=== PATIENT | male | born 1940 ===

== ENCOUNTER 2019-02-26 14:27 | Inpatient (IN) | payer MEDICARE, OTHER ==
[2019-02-26] MEDS ORDERED: Acetaminophen 500 MG TAB PO PRN (17:27)
[2019-02-26] MEDS ORDERED: Doxazosin 2 MG TAB PO SCH (21:00)
[2019-02-26] MEDS: Acetaminophen 500 MG TAB PO PRN (22:40)
[2019-02-27 05:20] LABS: #Eosinphils 0.2 thou/uL (0.0-0.7); #Monocytes 0.8 thou/uL (0.11-0.59); #Neutrophils 5.1 thou/uL (1.40-6.50); %Basophils 0.5 % (0.0-1.0); %Lymphocytes 13.5 % (21.0-51.0); %Monocytes 10.8 % (0.0-10.0); %Neutrophils 72.3 % (42.0-75.0); Hemoglobin 10.9 g/dL (14.0-18.0); Mean Corpuscular HGB CONC 33.6 g/dL (32.0-36.0); Mean Corpuscular Hemoglobin 31.1 pg (27.0-31.0); Mean Corpuscular Volume 92.7 fL (78.0-98.0); Platelet Count 137 thou/uL (130-400); RBC Distribution Width 12.3 % (11.5-14.5); Red Blood Cell (RBC) Count 3.51 mill/uL (4.70-6.10); White Blood Cell (WBC) Count 7.1 thou/uL (4.8-10.8)
[2019-02-27 05:41] LABS: ALT (SGPT) 16 U/L (8-55); AST (SGOT) 22 U/L (5-34); Albumin 3.4 g/dL (3.4-4.8); Alkaline Phosphatase 32 U/L (40-110); Anion Gap 12 mmol/L (10-20); BUN (Urea Nitrogen) 17 mg/dL (8.4-25.7); Bilirubin, Total 0.7 mg/dL (0.2-1.2); Calc. Creatinine Clearance 101 mL/min (70-130); Calcium 8.8 mg/dL (7.8-10.44); Carbon Dioxide 25 mmol/L (23-31); Cardiac Risk 3.4 (Less than 4.5); Chloride 106 mmol/L (98-107); Cholesterol 124 mg/dl (< 200 Desired); Estimated GFR-MDRD 68; Globulin 2.5 g/dL (2.4-3.5); Glucose 161 mg/dL (83-110); HDL Cholesterol 37 mg/dL (>60 Neg Risk); LDL Cholesterol, Calculated 66 mg/dL; Potassium 4.1 mmol/L (3.5-5.1); Protein, Total 5.9 g/dL (5.8-8.1); Sodium 139 mmol/L (136-145); Triglycerides 105 mg/dL (Less than 150)
[2019-02-27] MEDS ORDERED: Doxazosin Mesylate 1 MG TAB PO SCH (09:00)
[2019-02-27] MEDS: Isosorbide Mononitrate 20 MG TAB PO SCH (09:13)
[2019-02-27] MEDS: Bisoprolol Fumarate 5 MG TAB PO SCH (09:13)
[2019-02-27] MEDS: Fenofibrate Nanocrystallized 145 MG TAB PO SCH (09:13)
[2019-02-27] MEDS: Rivaroxaban 10 MG TAB PO SCH (09:13)
[2019-02-27] MEDS: Acetaminophen 500 MG TAB PO PRN (09:18)
[2019-02-27] MEDS ORDERED: Doxazosin 2 MG TAB PO SCH (10:30)
[2019-02-27 12:01] LABS: Bilirubin Negative (Negative); Blood, Urine Small (Negative); Clarity Clear (Clear); Glucose, Urine (Dipstick) Negative (Negative); Leukocyte Negative (Negative); Nitrite Negative (Negative); Protein, Urine (Dipstick) 30 mg/dL (Neg-Trace); Urobilinogen 0.2 mg/dL (Less than 2)
[2019-02-27 12:24] LABS: Bacteria/HPF Rare-Few HPF (None Seen); Squamous Epithelial 0-3 HPF (0-3); WBC/HPF 0-3 HPF (0-3)
--- NOTE | 2019-02-27 14:56 | HP ---
Admitted to [facility] on 02/26/2019. CHIEF COMPLAINT: Weakness and gait abnormality following right hip replacement. HISTORY OF PRESENT ILLNESS: The patient is a 78-year-old white male, who has a history of hypertension and osteoarthritis. He has had a left total hip replacement 14 years ago due to severe osteoarthritis. He has developed severe arthritis of the right hip and this has gradually progressed to where he was having increasing pain with ambulation. Efforts to control this have been failing. The patient was admitted to [facility] under the care of orthopedic surgeon, Dr. North Kern, and on 02/24/2019, he underwent a right total hip arthroplasty for end-stage osteoarthritis of the hip. The patient had no complications. This was done under spinal anesthesia, nerve block, and sedation. Postop has been unremarkable. He said he has been managing this pain with Tylenol alone. He has been able to get up and he has been walking short distance. He said other than the incisional pain, he is doing fine. He is not having the pain in his hip like he had prior to the surgery. Overall, he is feeling good. He was transferred to [facility] on 02/26/2019 for purpose of physical therapy and occupational therapy to help with his strength, generalize weakness, deconditioning, and gait abnormality following the surgery. The patient was seen soon after his admission and his son was in attendance. The patient was able to give excellent history of what had recently happened and how he is doing now. He said he has been managing fine on Tylenol alone. PAST MEDICAL HISTORY: The patient had a left total hip replacement in 2004 for severe osteoarthritis; right total hip arthroplasty on 02/24/[address] [facility] by orthopedic surgeon, North Kern; laparoscopic cholecystectomy by Dr. Mihai Acosta; umbilical hernia repair. The patient has hypertension, hyperlipidemia, BPH, for which he has undergone a UroLift. He has spondylosis of his cervical and lumbar spine. He has a generalized osteoarthritis particularly of the hips and also some of the knees. PRESENT MEDICATIONS: 1. Acetaminophen 500 mg one or two every 6 hours as needed. 2. Bisoprolol fumarate 5 mg daily. 3. Xarelto 10 mg daily for DVT prophylaxis post hip replacement. 4. Isosorbide mononitrate 20 mg daily. 5. Fenofibrate 160 mg at bedtime. 6. Doxazosin 4 mg at bedtime. ALLERGIES: LEVAQUIN AND PENICILLIN. REVIEW OF SYSTEMS: CONSTITUTIONAL: The patient has not had any chills or fever. He has had no recent weight gain or loss. HEAD AND NECK: No complaints. PULMONARY: No shortness of breath or chest pain. CARDIOVASCULAR: No chest pain. GI: The patient has had no nausea or vomiting. The patient said he has felt a little mildly distended. He has had just a little bit of loose stools. He said this started a little bit before the surgery. He thinks it may have just been from nervousness with the upcoming surgery. : No complaints. MUSCULOSKELETAL: The patient says he has some pain and stiffness around the knees when he first extends the knees. When he is up moving around, they feel a lot better and he is able to walk well. NEUROPSYCHIATRIC: The patient says occasionally he has a little trouble with urination and a little problem controlling his stools ADLs: The patient is independent of all his ADLs and instrumental ADLs. HABITS: Alcohol, none. Tobacco, none. SOCIAL HISTORY: The patient is , lives with his . PHYSICAL EXAMINATION: GENERAL: Very pleasant 78-year-old white male, who is lying in bed. He is talkative, appears very comfortable, and in no distress. VITAL SIGNS: Temperature of 97.9, pulse of 98, respirations are 18, O2 saturation 97% on room air, blood pressure 129/57, and weight 266. HEENT: Head, normocephalic. Eyes, pupils are equal, round, and reactive. Ears , TMs are clear. Nose normal. Mouth and throat normal. NECK: Carotids are equal and strong. No bruits. Thyroid not enlarged. LUNGS: Clear. HEART: Regular rate. No murmurs. ABDOMEN: Soft with no organomegaly. No areas of tenderness. Abdomen is obese. He has had umbilical hernia repair with mesh. EXTREMITIES: There is no lower extremity edema. Incision over the right hip has some mild surrounding bruising. The incision has been closed with rikki and appears to be healing well. NEUROLOGIC: The patient is alert, oriented x3, and also understands situation. He was able to give a good history. He has generalized weakness. He has some increased weakness in the right leg from the recent surgery. Otherwise, no focal weakness. IMPRESSION: 1. Generalized weakness and deconditioning with gait abnormality. a. Following right total hip replacement on 02/24/2019. 2. Hospitalized at [facility] from 02/24 until 02/26/2019 for right total hip replacement. 3. Severe osteoarthritis of the hips. a. Status post right total hip arthroplasty on 02/24/[address] North Kern. b. Status post left total hip replacement for severe osteoarthritis in 2004. 4. Hypertension. 5. Hyperlipidemia. 6. Benign prostatic hyperplasia. a. Status post urethral lift. 7. Hyperlipidemia. 8. Obesity. PLAN: The patient is admitted to [facility] for purpose of physical therapy and occupational therapy. This patient has been placed on DVT prophylaxis by surgeon, Dr. Kern, with Xarelto, which will be continued. We will continue his routine medication, and the goals will be to try to get the patient back up ambulating independently and transferring independently and return home with his . CODE STATUS: Full code. Job ID: [id number] MTDD
--- NOTE | 2019-02-27 14:56 | PRG ---
DATE OF SERVICE: 02/27/2019 SUBJECTIVE: The patient said he had a pretty good night. He had a little burning sensation in the right hip, but with repositioning and Tylenol this relieved this. During the night, he woke up with kind of a sweating spell, but no fever. The patient said he had a Kelly catheter after his hip surgery that was removed on the day of his discharge. He said that he has been voiding, but he is not voiding the volume he was as when he had the catheter and wondered if he might not be completely emptying his bladder. Also, he said that when the catheter was removed, the process removing caused a little burning. He has had no subsequent burning. He has in the past had urinary tract infections. Otherwise, he thinks he is doing good. OBJECTIVE: GENERAL: The patient is sitting up on the side of the bed, alert, talkative, appears in no distress. VITAL SIGNS: Show temperature 98.1, pulse 92, respirations 18, O2 saturation 97 % on room air, blood pressure 152/72. LUNGS: Clear. HEART: Regular rate. EXTREMITIES: No edema. SKIN: Dressing is dry. LABORATORY DATA: His lab shows H and H of 10.9 and 32.5, white cell count 7100 with 72% neutrophils, 14% lymphocytes, 11% monocytes, and platelet count of 137,000. Sodium 139, potassium 4.1, BUN 17, creatinine 1.05, GFR 68, glucose 161. TSH 0.84. Cholesterol 124, triglycerides 105, LDL 66. HDL 37. ASSESSMENT: 1. Generalized weakness and deconditioning. a. Following right total hip replacement on 02/24/2019. b. Improved working with Physical Therapy. 2. Status post hospitalization at [facility] from 02/24 to for severe arthritis of the right hip requiring right total hip replacement. 3. Severe generalized osteoarthritis. a. Status post right total hip arthroplasty on 02/24/2019. Doing well as of 02/27. b. Status post left total hip replacement. 4. Hypertension. a. Controlled as of 02/27/2019. 5. Benign prostatic hypertrophy. a. Status post urethral lift. b. Recent Kelly catheter that was removed on 02/26/2019. c. Little concerned that he may not be totally emptying his bladder as of . 6. Obesity. 7. Hyperlipidemia. a. Controlled. PLAN: We will check urine analysis after the patient voids. We will have the nurses scan the bladder. Continue PT/OT. The patient had been started on Cardura at bedtime. He would not sure he needed this and it was held, but we will restart this after explaining to him while this had probably been started. Job ID: [id number] MTDD
[2019-02-28] MEDS: Acetaminophen 500 MG TAB PO PRN ×2 (08:36→20:50)
[2019-02-28] MEDS: Doxazosin 2 MG TAB PO SCH (08:37)
[2019-02-28] MEDS: Rivaroxaban 10 MG TAB PO SCH (08:37)
[2019-02-28] MEDS: Isosorbide Mononitrate 20 MG TAB PO SCH (08:37)
[2019-02-28] MEDS: Fenofibrate Nanocrystallized 145 MG TAB PO SCH (08:37)
[2019-02-28] MEDS: Bisoprolol Fumarate 5 MG TAB PO SCH (08:37)
[2019-03-01] MEDS: Fenofibrate Nanocrystallized 145 MG TAB PO SCH (08:51)
[2019-03-01] MEDS: Bisoprolol Fumarate 5 MG TAB PO SCH (08:51)
[2019-03-01] MEDS: Doxazosin 2 MG TAB PO SCH (08:51)
[2019-03-01] MEDS: Isosorbide Mononitrate 20 MG TAB PO SCH (08:51)
[2019-03-01] MEDS: Rivaroxaban 10 MG TAB PO SCH (08:51)
[2019-03-01] MEDS: Acetaminophen 500 MG TAB PO PRN ×2 (11:38→20:50)
[2019-03-02] MEDS: Fenofibrate Nanocrystallized 145 MG TAB PO SCH (08:15)
[2019-03-02] MEDS: Isosorbide Mononitrate 20 MG TAB PO SCH (08:15)
[2019-03-02] MEDS: Doxazosin 2 MG TAB PO SCH (08:15)
[2019-03-02] MEDS: Rivaroxaban 10 MG TAB PO SCH (08:15)
[2019-03-02] MEDS: Bisoprolol Fumarate 5 MG TAB PO SCH (08:15)
[2019-03-02] MEDS: Acetaminophen 500 MG TAB PO PRN (21:35)
[2019-03-03 05:35] LABS: Anion Gap 14 mmol/L (10-20); BUN (Urea Nitrogen) 22 mg/dL (8.4-25.7); Calc. Creatinine Clearance 95 mL/min (70-130); Calcium 9.1 mg/dL (7.8-10.44); Carbon Dioxide 28 mmol/L (23-31); Chloride 103 mmol/L (98-107); Estimated GFR-MDRD 64; Glucose 166 mg/dL (83-110); Potassium 4.5 mmol/L (3.5-5.1); Sodium 140 mmol/L (136-145)
[2019-03-03 05:38] LABS: #Basophils 0.1 thou/uL (0.0-0.2); #Eosinphils 0.4 thou/uL (0.0-0.7); #Lymphocytes 1.2 thou/uL (1.20-3.40); #Monocytes 0.8 thou/uL (0.11-0.59); #Neutrophils 4.5 thou/uL (1.40-6.50); %Basophils 1.1 % (0.0-1.0); %Eosinophils 6.4 % (0.0-10.0); %Lymphocytes 17.2 % (21.0-51.0); %Monocytes 11.1 % (0.0-10.0); %Neutrophils 64.2 % (42.0-75.0); Hemoglobin 10.5 g/dL (14.0-18.0); Mean Corpuscular HGB CONC 32.9 g/dL (32.0-36.0); Mean Corpuscular Hemoglobin 31.3 pg (27.0-31.0); Mean Corpuscular Volume 95.4 fL (78.0-98.0); Mean Platelet Volume 5.2 fL (7.4-10.4); Platelet Count 229 thou/uL (130-400); Red Blood Cell (RBC) Count 3.36 mill/uL (4.70-6.10); White Blood Cell (WBC) Count 6.9 thou/uL (4.8-10.8)
--- NOTE | 2019-03-03 07:57 | PRG ---
DATE OF SERVICE: 02/28/2019 SUBJECTIVE: The patient says he is feeling good this morning. During the night , he got cold and he got up and adjusted his thermostat and was able to rest after that. He says his urinations seem to be a lot better today. He had a good bowel movement yesterday and a lot of the gassiness in the stomach is much improved. OBJECTIVE: GENERAL: The patient is lying in bed, very talkative, and appears comfortable and in no distress. VITAL SIGNS: His temperature is 99.2 and pulse was 102, this was at 8 p.m. Respirations are 18, O2 saturation 94% on room air, and blood pressure 123/63. Morning vitals pending. LUNGS: Clear. HEART: Regular rate. EXTREMITIES: Trace edema in the right leg. ASSESSMENT: 1. Generalized weakness and deconditioning. a. Following right total hip replacement on 02/24/2019. b. Improved as of 02/28/2019. 2. Status post hospitalization at [facility] from 02/24 to for severe arthritis of the right hip requiring right total hip replacement. 3. Severe generalized osteoarthritis. a. Status post right total hip arthroplasty on 02/24/2019. Doing well as of 02/28. b. Status post left total hip replacement. 2. Hypertension. a. Controlled as of 02/27/2019. 3. Benign prostatic hypertrophy. a. Status post urethral lift. b. Recent Kelly catheter that was removed on 02/26/2019. c. Urination improved. Feels like he is emptying his bladder fine as of . 4. Obesity. 5. Hyperlipidemia. a. Controlled. PLAN: Continue PT/OT. Continue present medicines. Job ID: [id number] [facility]
--- NOTE | 2019-03-03 07:59 | PRG ---
DATE OF SERVICE: 03/01/2019 SUBJECTIVE: The patient thinks he is doing good. He is working with Physical Therapy and doing very well. He is walking 75 to 100 feet several times a day with a caregiver assist. He is transferring with minimal assistance. OBJECTIVE: GENERAL: The patient is lying in bed. He appears very comfortable , in no distress. VITAL SIGNS: His temp is 97.7, pulse 99, respirations 16, O2 saturation 96% on room air, blood pressure 126/74. LUNGS: Clear. HEART: Regular rate. EXTREMITIES: No edema. Incision healing well. There is some bruising around the incision. ASSESSMENT: 1. Generalized weakness and deconditioning. a. Following right total hip replacement on 02/24/2019. b. Improved. Walking up to 75 to 100 feet. Transferring with minimal assistance as of 03/01. 2. Status post hospitalization at [facility] from 02/24 to for severe arthritis of the right hip requiring right total hip replacement. 3. Severe generalized osteoarthritis. a. Status post right total hip arthroplasty on 02/24/2019. Doing well as of 03/01. b. Status post left total hip replacement. 4. Hypertension. a. Controlled as of 03/01/2019. 5. Benign prostatic hypertrophy. a. Status post urethral lift. b. Recent Kelly catheter that was removed on 02/26/2019. c. Little concerned that he may not be totally emptying his bladder as of . 6. Obesity. 7. Hyperlipidemia. a. Controlled. PLAN: Continue present care. Continue PT. Job ID: [id number] [facility]
[2019-03-03] MEDS: Bisoprolol Fumarate 5 MG TAB PO SCH (09:02)
[2019-03-03] MEDS: Fenofibrate Nanocrystallized 145 MG TAB PO SCH (09:02)
[2019-03-03] MEDS: Doxazosin 2 MG TAB PO SCH (09:02)
[2019-03-03] MEDS: Rivaroxaban 10 MG TAB PO SCH (09:02)
[2019-03-03] MEDS: Isosorbide Mononitrate 20 MG TAB PO SCH (09:02)
[2019-03-03] MEDS: Acetaminophen 500 MG TAB PO PRN (14:06)
--- NOTE | 2019-03-04 07:30 | PRG ---
DATE OF SERVICE: 03/03/2019 SUBJECTIVE: The patient said he had a good night, slept well. His hips feeling good. He has already been to therapy, walked, and has been on the [employer] which works his arms and legs. OBJECTIVE: GENERAL: The patient is sitting up in a chair, preparing for breakfast. VITAL SIGNS: Show a temperature 98.1, pulse 90, respirations 16, O2 saturation 95% on room air, and blood pressure 131/64. LUNGS: Clear. HEART: Regular rate. EXTREMITIES: No edema. LABORATORY DATA: H and H of 10.5 and 32, white blood cell count 6900, with 64% segs, 17% lymphocytes, and platelet count of 229. Sodium 140, potassium 4.5, BUN 22, creatinine 1.1, GFR 64, and glucose 166. Hemoglobin A1c pending. ASSESSMENT: 1. Generalized weakness and deconditioning. a. Following right total hip replacement on 02/24/2019. b. Improved. Walking up to 75 to 100 feet. Transferring with minimal assistance as of 03/03. 2. Status post hospitalization at [facility] from 02/24 to for severe arthritis of the right hip requiring right total hip replacement. 3. Severe generalized osteoarthritis. a. Status post right total hip arthroplasty on 02/24/2019. Doing well as of 03/03. b. Status post left total hip replacement. 4. Hypertension. a. Controlled as of 03/03/2019. 5. Benign prostatic hypertrophy. a. Status post urethral lift. b. Recent Kelly catheter that was removed on 02/26/2019. c. Little concerned that he may not be totally emptying his bladder as of . 6. Obesity. 7. Hyperlipidemia. a. Controlled. 8. Abnormal FBS. a. Hemoglobin A1c pending as of 03/03. PLAN: Continue present care. Continue PT/OT. The patient is due to be seen by his orthopedic surgeon, Dr. Kren on 03/05/2019. Job ID: [id number] MTDD
[2019-03-04] MEDS: Doxazosin 2 MG TAB PO SCH (09:18)
[2019-03-04] MEDS: Isosorbide Mononitrate 20 MG TAB PO SCH (09:18)
[2019-03-04] MEDS: Fenofibrate Nanocrystallized 145 MG TAB PO SCH (09:19)
[2019-03-04] MEDS: Bisoprolol Fumarate 5 MG TAB PO SCH (09:19)
[2019-03-04] MEDS: Rivaroxaban 10 MG TAB PO SCH (09:19)
[2019-03-04] MEDS: Acetaminophen 500 MG TAB PO PRN (09:22)
--- NOTE | 2019-03-04 12:36 | PRG ---
DATE OF SERVICE: 03/04/2019 SUBJECTIVE: Patient says he is doing good. He had no complaint this morning. He is doing better with therapy. OBJECTIVE: GENERAL: The patient is sitting on the side of his bed having completed his breakfast. VITAL SIGNS: His temp is 97.8, pulse 90, respirations 16, O2 saturation 97% on room air, blood pressure 133/60. LUNGS: Clear. HEART: Regular rate. EXTREMITIES: No edema. Incisions reported by the nurse who has been dressing change as clean. No drainage. ASSESSMENT: 1. Generalized weakness and deconditioning. a. Following right total hip replacement on 02/24/2019. b. Improved. Walking up to 75 to 100 feet. Transferring with minimal assistance as of 03/04. 2. Status post hospitalization at [facility] from 02/24 to for severe arthritis of the right hip requiring right total hip replacement. 3. Severe generalized osteoarthritis. a. Status post right total hip arthroplasty on 02/24/2019. Doing well as of 03/04. b. Status post left total hip replacement. 4. Hypertension. a. Controlled as of 03/04/2019. 5. Benign prostatic hypertrophy. a. Status post urethral lift. b. Recent Kelly catheter that was removed on 02/26/2019. c. Voiding well as of 03/04. 6. Obesity. 7. Hyperlipidemia. a. Controlled. 8. Abnormal FBS. a. Hemoglobin A1c pending as of 03/03. PLAN: Continue present care. Continue PT, OT tomorrow. The patient will be seeing his orthopedic surgeon in [place], Dr. Kern. Job ID: [id number] MTDD
[2019-03-05] MEDS: Acetaminophen 500 MG TAB PO PRN ×2 (01:27→16:37)
[2019-03-05] MEDS: Isosorbide Mononitrate 20 MG TAB PO SCH (08:16)
[2019-03-05] MEDS: Bisoprolol Fumarate 5 MG TAB PO SCH (08:16)
[2019-03-05] MEDS: Fenofibrate Nanocrystallized 145 MG TAB PO SCH (08:16)
[2019-03-05] MEDS: Doxazosin 2 MG TAB PO SCH (08:16)
[2019-03-05] MEDS: Rivaroxaban 10 MG TAB PO SCH (08:17)
--- NOTE | 2019-03-05 09:34 | PRG ---
DATE OF SERVICE: 03/05/2019 SUBJECTIVE: The patient is feeling good today. He is due to see Dr. Kern this afternoon, his orthopedic surgeon. OBJECTIVE: GENERAL: The patient is sitting up on the edge of the bed. He is alert, appears comfortable, in no distress. VITAL SIGNS: His temperature is 97.3, pulse is 92, respirations are 16, O2 saturation is 97% on room air, blood pressure is 140/68. LUNGS: Clear. HEART: Regular rate. EXTREMITIES: No edema. ASSESSMENT: 1. Generalized weakness and deconditioning. a. Following right total hip replacement on 02/24/2019. b. Improved. Walking up to 75 to 100 feet. Transferring with minimal assistance as of 03/05. 2. Status post hospitalization at [facility] from 02/24 to for severe arthritis of the right hip requiring right total hip replacement. 3. Severe generalized osteoarthritis. a. Status post right total hip arthroplasty on 02/24/2019. Doing well as of 03/05. b. Status post left total hip replacement. 4. Hypertension. a. Controlled as of 03/05/2019. 5. Benign prostatic hypertrophy. a. Status post urethral lift. b. Recent Kelly catheter that was removed on 02/26/2019. c. Voiding well as of 03/05. 6. Obesity. 7. Hyperlipidemia. a. Controlled. 8. Abnormal FBS. a. Hemoglobin A1c pending as of 03/03. PLAN: Continue present care. Continue PT/OT. The patient will see his orthopedic surgeon this afternoon. Job ID: [id number] MTDD
[2019-03-05] MEDS: Clindamycin 150 MG CAP PO SCH ×2 (16:37→20:16)
[2019-03-06] MEDS: Acetaminophen 500 MG TAB PO PRN ×3 (00:34→20:38)
[2019-03-06] MEDS: Isosorbide Mononitrate 20 MG TAB PO SCH (08:04)
[2019-03-06] MEDS: Clindamycin 150 MG CAP PO SCH ×4 (08:04→20:38)
[2019-03-06] MEDS: Doxazosin 2 MG TAB PO SCH (08:04)
[2019-03-06] MEDS: Rivaroxaban 10 MG TAB PO SCH (08:04)
[2019-03-06] MEDS: Bisoprolol Fumarate 5 MG TAB PO SCH (08:04)
[2019-03-06] MEDS: Fenofibrate Nanocrystallized 145 MG TAB PO SCH (08:05)
--- NOTE | 2019-03-06 09:56 | PRG ---
DATE OF SERVICE: 03/06/2019 SUBJECTIVE: The patient said he is doing good this morning. Yesterday, went and saw his orthopedic surgeon, Dr. Kern. He said the trip him out. He did not feel like he could participate yesterday afternoon with PT because he was so tired. Today, though he is ready to hit it again. Dr. Kern left the rikki in and will re-see him next week. He has the patient wear his ROJELIO hose and also there was just a little bit of a serosanguineous drainage from the lower part of the incision and he put him on a course of clindamycin. OBJECTIVE: GENERAL: The patient is sitting up on the edge of the bed. He is alert, talkative, and appears very comfortable, in no distress. VITAL SIGNS: Show a temperature of 97.8, pulse was 106, respirations 16, O2 saturation 95% on room air, blood pressure was up a little bit this morning, but he has not had his medication, pressure was 186/76, last evening it was 120/58. LUNGS: Clear. HEART: Regular rate. EXTREMITIES: Lower extremities; there is no edema. He is wearing his long-leg ROJELIO hose. His incision over the right hip, rikki are still present. The wound is healing well. Over the inferior aspect, there is just a little bit of a serosanguineous staining of the dressing. There is no surrounding redness. ASSESSMENT: 1. Generalized weakness and deconditioning. a. Following right total hip replacement on 02/24/2019. b. Improved. Walking up to 75 to 100 feet. Transferring with minimal assistance as of 03/06. 2. Status post hospitalization at [facility] from 02/24 to for severe arthritis of the right hip requiring right total hip replacement. 3. Severe generalized osteoarthritis. a. Status post right total hip arthroplasty on 02/24/2019. Doing well as of 03/06. b. Status post left total hip replacement. 4. Hypertension. a. ,Blood pressure was elevated today, but he has not yet had medication as of 03/06. 5. Benign prostatic hypertrophy. a. Status post urethral lift. b. Recent Kelly catheter that was removed on 02/26/2019. c. Voiding well as of 03/05. 6. Obesity. 7. Hyperlipidemia. a. Controlled. 8. Abnormal FBS. a. Hemoglobin A1c pending as of 03/03. PLAN: Continue PT/OT. The patient has been started on the clindamycin as recommended by his orthopedic surgeon, Dr. Kern. He will follow up with Dr. Kern in one week from his visit yesterday. Job ID: [id number] MTDD
[2019-03-06 11:10] VITALS: BMI 39.4
[2019-03-07 05:43] LABS: Anion Gap 15 mmol/L (10-20); BUN (Urea Nitrogen) 29 mg/dL (8.4-25.7); Calc. Creatinine Clearance 88 mL/min (70-130); Calcium 9.3 mg/dL (7.8-10.44); Carbon Dioxide 26 mmol/L (23-31); Chloride 104 mmol/L (98-107); Estimated GFR-MDRD 58; Glucose 160 mg/dL (83-110); Potassium 4.8 mmol/L (3.5-5.1); Sodium 140 mmol/L (136-145)
[2019-03-07 06:15] LABS: Hemoglobin 10.9 g/dL (14.0-18.0); Manual Diff?? NO; Mean Corpuscular HGB CONC 31.2 g/dL (32.0-36.0); Mean Corpuscular Hemoglobin 30.5 pg (27.0-31.0); Mean Corpuscular Volume 97.9 fL (78.0-98.0); Mean Platelet Volume 5.2 fL (7.4-10.4); Platelet Count 253 thou/uL (130-400); Red Blood Cell (RBC) Count 3.58 mill/uL (4.70-6.10); White Blood Cell (WBC) Count 6.8 thou/uL (4.8-10.8)
[2019-03-07 06:16] LABS: #Eosinphils 0.4 thou/uL (0.0-0.7); #Monocytes 0.5 thou/uL (0.11-0.59); #Neutrophils 4.4 thou/uL (1.40-6.50); %Basophils 0.6 % (0.0-1.0); %Eosinophils 6.4 % (0.0-10.0); %Lymphocytes 20.4 % (21.0-51.0); %Neutrophils 64.6 % (42.0-75.0); MDiff Complete? YES
[2019-03-07] MEDS: Doxazosin 2 MG TAB PO SCH (09:37)
[2019-03-07] MEDS: Clindamycin 150 MG CAP PO SCH ×4 (09:37→20:46)
[2019-03-07] MEDS: Isosorbide Mononitrate 20 MG TAB PO SCH (09:37)
[2019-03-07] MEDS: Bisoprolol Fumarate 5 MG TAB PO SCH (09:37)
[2019-03-07] MEDS: Rivaroxaban 10 MG TAB PO SCH (09:37)
[2019-03-07] MEDS: Fenofibrate Nanocrystallized 145 MG TAB PO SCH (09:37)
[2019-03-07 11:34] LABS: Hemoglobin A1c 6.3 % (4.0-6.0)
[2019-03-07 11:49] LABS: Hemoglobin A1c 6.3 % (4.0-6.0)
--- NOTE | 2019-03-07 12:20 | PRG ---
DATE OF SERVICE: 03/07/2019 SUBJECTIVE: The patient is doing well. He has already been for his physical therapy. He has no complaint. OBJECTIVE: GENERAL: The patient is alert, appears in no distress. He looks very comfortable. He has just returned from physical therapy. VITAL SIGNS: Show a temperature of 97.7, pulse 101, respirations 18, O2 saturation 97% on room air, and blood pressure 138/61. LUNGS: Clear. HEART: Regular rate. EXTREMITIES: No edema. Incision along the right hip. There is no surrounding redness. The rikki are present. The wound is healing. There is a moderate amount of serous drainage with two little pink spots. The wound is soft. There is no induration. LABORATORY DATA: His lab shows a hemoglobin and hematocrit of 10.9 and 35 with a white cell count 6800 with 65% segs, 20% lymphocytes, platelet count of 253. Sodium 140, potassium 4.8, BUN 29, creatinine 1.21, GFR 58. FBS 160. Hemoglobin A1c is 6.3. ASSESSMENT: 1. Generalized weakness and deconditioning. a. Following right total hip replacement on 02/24/2019. b. Improved. Walking up to 75 to 100 feet. Transferring with minimal assistance as of 03/07. 2. Status post hospitalization at [facility] from 02/24 to for severe arthritis of the right hip requiring right total hip replacement. 3. Severe generalized osteoarthritis. a. Status post right total hip arthroplasty on 02/24/2019. Doing well as of 03/07. b. Status post left total hip replacement. 4. Hypertension. a. Controlled as of 03/07. 5. Benign prostatic hypertrophy. a. Status post urethral lift. b. Recent Kelly catheter that was removed on 02/26/2019. c. Voiding well as of 03/05. 6. Obesity. 7. Hyperlipidemia. a. Controlled. 8. Diabetes mellitus type 2. a. Hemoglobin A1c 6.3 as of 03/07 with an FBS of 160. PLAN: Continue present care. We will start the patient on metformin 500 mg b.i.d. Job ID: [id number] [facility]
[2019-03-07] MEDS: metFORMIN 500 MG TAB PO SCH (17:26)
[2019-03-07] MEDS: Acetaminophen 500 MG TAB PO PRN (17:28)
[2019-03-08] MEDS: Acetaminophen 500 MG TAB PO PRN ×2 (02:26→21:03)
[2019-03-08] MEDS: metFORMIN 500 MG TAB PO SCH (08:24)
[2019-03-08] MEDS: Bisoprolol Fumarate 5 MG TAB PO SCH (08:24)
[2019-03-08] MEDS: Doxazosin 2 MG TAB PO SCH (08:25)
[2019-03-08] MEDS: Fenofibrate Nanocrystallized 145 MG TAB PO SCH (08:25)
[2019-03-08] MEDS: Clindamycin 150 MG CAP PO SCH ×4 (08:25→21:03)
[2019-03-08] MEDS: Rivaroxaban 10 MG TAB PO SCH (08:25)
[2019-03-08] MEDS: Isosorbide Mononitrate 20 MG TAB PO SCH (08:25)
[2019-03-09] MEDS: Isosorbide Mononitrate 20 MG TAB PO SCH (08:44)
[2019-03-09] MEDS: Clindamycin 150 MG CAP PO SCH ×4 (08:44→20:28)
[2019-03-09] MEDS: Doxazosin 2 MG TAB PO SCH (08:44)
[2019-03-09] MEDS: Fenofibrate Nanocrystallized 145 MG TAB PO SCH (08:44)
[2019-03-09] MEDS: Rivaroxaban 10 MG TAB PO SCH (08:44)
[2019-03-09] MEDS: Bisoprolol Fumarate 5 MG TAB PO SCH (08:45)
--- NOTE | 2019-03-10 07:24 | PRG ---
DATE OF SERVICE: 03/08/2019 SUBJECTIVE: Yesterday, the patient was started on metformin for the diabetes. He said ever since then, he has had some loose stools and his stomach has been upset. His appetite has been affected. He would prefer to try just a diabetic diet and not the metformin, and see if he can control this with diet alone. This is a reasonable request and we will try this. We will stop the metformin. Otherwise, he has been doing good. OBJECTIVE: GENERAL: The patient is sitting on the side of his bed. He is alert, talkative, appears comfortable, and in no distress. VITAL SIGNS: His temperature is 97.5, pulse 79, respirations are 18, O2 saturation 98% on room air, blood pressure 116/65. LUNGS: Clear. HEART: Regular rate. EXTREMITIES: No edema. LABORATORY DATA: His FBS yesterday morning was 160, previous morning 166. ASSESSMENT: 1. Generalized weakness and deconditioning. a. Following right total hip replacement on 02/24/2019. b. Improved. Walking up to 75 to 100 feet. Transferring with minimal assistance as of 03/08. 2. Status post hospitalization at [facility] from 02/24 to for severe arthritis of the right hip requiring right total hip replacement. 3. Severe generalized osteoarthritis. a. Status post right total hip arthroplasty on 02/24/2019. Doing well as of 03/07. b. Status post left total hip replacement. 4. Hypertension. a. Controlled as of 03/08. 5. Benign prostatic hypertrophy. a. Status post urethral lift. b. Recent Kelly catheter that was removed on 02/26/2019. c. Voiding well as of 03/05. 6. Obesity. 7. Hyperlipidemia. a. Controlled. 6. Diabetes mellitus type 2. a. Hemoglobin A1c 6.3 as of 03/07 with an FBS of 160. b. Tried the patient on metformin, which created upset stomach and loose bowel movements. Stopped on 03/08/2019. PLAN: Continue PT/OT. Place patient on a consistent carbohydrate diet. We will stop the metformin. Plan on discharge on Sunday, 03/10. Job ID: [id number] MTDD
[2019-03-10] MEDS: Doxazosin 2 MG TAB PO SCH (08:44)
[2019-03-10] MEDS: Fenofibrate Nanocrystallized 145 MG TAB PO SCH (08:44)
[2019-03-10] MEDS: Isosorbide Mononitrate 20 MG TAB PO SCH (08:45)
[2019-03-10] MEDS: Bisoprolol Fumarate 5 MG TAB PO SCH (08:45)
[2019-03-10] MEDS: Clindamycin 150 MG CAP PO SCH (08:45)
[2019-03-10] MEDS: Rivaroxaban 10 MG TAB PO SCH (08:45)
[2019-03-10 10:44] VITALS: BP 132/58; TEMP 97
--- NOTE | 2019-03-10 11:52 | DIS ---
DATE OF ADMISSION: 02/26/2019 DATE OF DISCHARGE: 03/10/2019 FINAL DIAGNOSES: 1. Generalized weakness and deconditioning. a. Following right total hip replacement on 02/24/2019. b. Improved. Walking up to 100 feet several times a day. Transferring independently as of 03/10. 2. Status post hospitalization at [facility] from 02/24 to for severe arthritis of the right hip requiring right total hip replacement. 3. Severe generalized osteoarthritis. a. Status post right total hip arthroplasty on 02/24/2019. Doing well as of 03/07. b. Status post left total hip replacement. 4. Hypertension. a. Controlled as of 03/10. 5. Benign prostatic hypertrophy. a. Status post urethral lift. b. Recent Kelly catheter that was removed on 02/26/2019. c. Voiding well as of 03/05. 6. Obesity. 7. Hyperlipidemia. a. Controlled. 8. Diabetes mellitus type 2. a. Hemoglobin A1c 6.3 as of 03/07 with an FBS of 160. b. Intolerant of metformin due to GI symptoms. HOSPITAL COURSE: The patient is a 78-year-old white male, who has a history of hypertension, diabetes, and BPH. He has severe arthritis, for which he has undergone previous left total hip replacement. He has severe arthritis of the right hip and underwent a right total hip replacement by Dr. Kern at [facility] on 02/24/2019. He was discharged on 02/26/2019 to [facility] for continued PT and OT. During his hospital stay here, he has done very well, his pain has been managed with Tylenol alone. He has made excellent progress with his physical therapy and walking up to 250 feet at least several times a day with his rolling walker and transferring independently. His blood sugars fasting were running around 160. His hemoglobin A1c was 6.3. He was tried on a low-dose of metformin 500 mg b.i.d., but he was intolerant to this. He said it upset his stomach and he had loose stools. This was stopped and the symptoms resolved. He is going to try just to be better on the diabetic diet and see if he can control it with diet alone. The patient will follow up with his primary physician, Dr. Briseno. The patient did see his surgeon, Dr. Kern, who felt that he was doing well. He noticed a little serous drainage from the wound and a little irritation and placed him on clindamycin. He is due to be rechecked by Dr. Kern on 03/11/2019. The patient's condition was such that he felt he could be managed at home and he was discharged on 03/10/2019. He is undecided whether or not he will continue with physical therapy here at the [facility], he will let us know if he wants to pursue this. DIET: Consistent carbohydrate diet, 1800, no added salt. ACTIVITIES: Ambulate with the use of a walker. Recommend physical therapy for continued strengthening exercise, gait training, either through Home Health or as an outpatient at the [facility]. Check glucometers at least 3 days a week. MEDICATIONS: 1. Tylenol 500 mg one or two every 6 hours as needed for pain. 2. Zebeta 5 mg daily. 3. Cardura 4 mg at bedtime. 4. TriCor 145 mg daily. 5. Isosorbide mononitrate 20 mg daily. 6. Xarelto 10 mg daily. 7. Clindamycin 300 mg q.i.d. for 7 days. FOLLOWUP: The patient is to see Dr. Kern, his orthopedic surgeon on 2018. The patient should see his regular physician, Dr. Briseno in [place] in 2 weeks. CODE STATUS: Full code. Job ID: [id number]
== END 2019-03-10 11:45 | disposition home or self-care (01) | DRG 92 ==
LOC: MADMS 15:14
PROVIDERS: ADMIT Family Medicine; ATTEND Family Medicine
DX: R26.9 Unspecified abnormalities of gait and mobility (principal); T81.30XA Disruption of wound, unspecified, initial encounter; R53.1 Weakness; I10 Essential (primary) hypertension; Z96.642 Presence of left artificial hip joint; R53.81 Other malaise; Z96.641 Presence of right artificial hip joint; Z79.899 Other long term (current) drug therapy; Z90.49 Acquired absence of other specified parts of digestive tract; E78.5 Hyperlipidemia, unspecified; N40.0 Benign prostatic hyperplasia without lower urinary tract symptoms; Z88.6 Allergy status to analgesic agent; Z88.0 Allergy status to penicillin; E66.9 Obesity, unspecified; Z68.39 Body mass index [BMI] 39.0-39.9, adult; E11.9 Type 2 diabetes mellitus without complications
CPT/HCPCS: 36415; 80048; 80053; 80061; 81001; 83036; 84443; 85025